=== PATIENT | female | born 1965 | race African-American/Black ===

== ENCOUNTER 2019-04-28 18:53 | Emergency (ER) | payer OTHER ==
[~2019-04-28] VITALS: Ht 170.2 cm; Wt 84.0 kg
--- NOTE | 2019-04-28 19:57 | PHYS DOC ---
Past Medical History Past Medical History: No Pertinent History Past Surgical History: No Surgical History Alcohol Use: None Adult General Chief Complaint Chief Complaint: MECHANICAL FALL HPI HPI 53-year-old female presents to the emergency department with complaints of fall, she complained of left knee pain. She states she hit her knee on the ice, she was unable to bear weight at that time. Since the pain is worsened which is why she presents to the ER. She is well describes cough, chest pain in center aspect of her chest for 3 weeks, she states it hurts to push on her chest. This is been constant. Patient denies any nausea, vomiting, abdominal pain, diarrhea, headache or visual change. Review of Systems Review of Systems Constitutional: Denies fever or chills [] Respiratory: Denies cough or shortness of breath [] Cardiovascular: No additional information not addressed in HPI [] GI: Denies abdominal pain, nausea, vomiting, bloody stools or diarrhea [] : Denies dysuria or hematuria [] Musculoskeletal: left knee pain Integument: Denies rash or skin lesions [] Neurologic: Denies headache, focal weakness or sensory changes [] All other systems were reviewed and found to be within normal limits, except as documented in this note. Current Medications Current Medications Current Medications Medications (Trade) Dose Ordered Sig/Letty Start Time Stop Time Status Last Admin Dose Admin Ketorolac Tromethamine (Toradol 15mg Vial) 30 mg 1X ONCE 04/28/19 20:00 04/28/19 20:01 DC 04/28/19 20:42 30 MG Allergies Allergies Allergies Coded Allergies Type Severity Reaction Last Updated Verified No Known Drug Allergies 04/28/19 No Physical Exam Physical Exam Constitutional: Well developed, well nourished, mild distress 2/2 pain, non- toxic appearance. [] HENT: Normocephalic, atraumatic, bilateral external ears normal, oropharynx moist, no oral exudates, nose normal. [] Eyes: PERRLA, EOMI, conjunctiva normal, no discharge. [] Cardiovascular:Heart rate regular rhythm, no murmur [] Lungs & Thorax: Bilateral breath sounds clear to auscultation [] Abdomen: Bowel sounds normal, soft, no tenderness, no masses, no pulsatile ma sses. [] Skin: Warm, dry, no erythema, no rash. [] Back: No tenderness, no CVA tenderness. [] Extremities: No tenderness, pain with ROM of left knee, some edema/swelling appreciated [] Neurologic: Alert and oriented X 3, no focal deficits noted. [] Psychologic: Affect normal, judgement normal, mood normal. [] Current Patient Data Vital Signs Vital Signs Date Time Temp Pulse Resp B/P (MAP) Pulse Ox O2 Delivery O2 Flow Rate FiO2 04/28/19 19:15 98.6 94 17 147/70 (95) 97 Room Air 98.6 Lab Values Laboratory Tests Test 04/28/19 20:36 White Blood Count 8.1 x10^3/uL (4.0-11.0) Red Blood Count 5.15 x10^6/uL (3.50-5.40) Hemoglobin 14.2 g/dL (12.0-15.5) Hematocrit 42.3 % (36.0-47.0) Mean Corpuscular Volume 82 fL (79-100) Mean Corpuscular Hemoglobin 28 pg (25-35) Mean Corpuscular Hemoglobin Concent 34 g/dL (31-37) Red Cell Distribution Width 15.0 % (11.5-14.5) H Platelet Count 341 x10^3/uL (140-400) Neutrophils (%) (Auto) 68 % (31-73) Lymphocytes (%) (Auto) 18 % (24-48) L Monocytes (%) (Auto) 10 % (0-9) H Eosinophils (%) (Auto) 4 % (0-3) H Basophils (%) (Auto) 1 % (0-3) Neutrophils # (Auto) 5.5 x10^3/uL (1.8-7.7) Lymphocytes # (Auto) 1.4 x10^3/uL (1.0-4.8) Monocytes # (Auto) 0.8 x10^3/uL (0.0-1.1) Eosinophils # (Auto) 0.3 x10^3/uL (0.0-0.7) Basophils # (Auto) 0.1 x10^3/uL (0.0-0.2) Sodium Level 141 mmol/L (136-145) Potassium Level 4.1 mmol/L (3.5-5.1) Chloride Level 104 mmol/L (98-107) Carbon Dioxide Level 29 mmol/L (21-32) Anion Gap 8 (6-14) Blood Urea Nitrogen 18 mg/dL (7-20) Creatinine 1.1 mg/dL (0.6-1.0) H Estimated GFR (Cockcroft-Gault) 62.4 BUN/Creatinine Ratio 16 (6-20) Glucose Level 106 mg/dL (70-99) H Calcium Level 9.2 mg/dL (8.5-10.1) Total Bilirubin 0.2 mg/dL (0.2-1.0) Aspartate Amino Transferase (AST) 21 U/L (15-37) Alanine Aminotransferase (ALT) 16 U/L (14-59) Alkaline Phosphatase 82 U/L (46-116) Troponin I Quantitative < 0.017 ng/mL (0.000-0.055) Total Protein 7.7 g/dL (6.4-8.2) Albumin 3.3 g/dL (3.4-5.0) L Albumin/Globulin Ratio 0.8 (1.0-1.7) L Laboratory Tests 04/28/19 20:36 Laboratory Tests 04/28/19 20:36 EKG EKG EKG reviewed, normal sinus rhythm, heart rate 96, interpretation time 1950, no evidence of ST elevation [place][] Radiology/Procedures Radiology/Procedures [facility] [address] [place] [address] IMAGING REPORT Signed PATIENT: PERCY MONTERROSO ACCOUNT: [id number] : 1965 LOCATION: ER AGE: 53 SEX: F EXAM STATUS: REG ER ORD. PHYSICIAN: VIGNESH CORTES MD REASON: fall, knee pain, unable to bear weight PROCEDURE: KNEE LEFT 3V Examination: KNEE LEFT 3V History: Fall, knee pain, unable to bear weight Comparison/Correlation: None Findings: Total 3 images of the left knee were obtained. Joint spaces are normal. No acute fracture or bone destruction. Small knee joint effusion is present. No significant degenerative change. Minimal spurring at the patella suggested. Soft tissues are unremarkable. Impression: Small knee joint effusion. Electronically signed by: Woodrow [place] MD (04/28/2019 8:32 PM) [place] [id number] DICTATED and SIGNED BY: WOODROW [place] MD DATE: 04/28/192031 [] [facility] [address] [place] [address] IMAGING REPORT Signed PATIENT: PERCY MONTERROSO ACCOUNT: [id number] : 1965 LOCATION: ER AGE: 53 SEX: F EXAM STATUS: REG ER ORD. PHYSICIAN: VIGNESH CORTES MD REASON: Chest Pain with cough PROCEDURE: PORTABLE CHEST 1V PORTABLE CHEST 1V History: Chest pain and cough Comparison: None. Findings: Patchy bibasilar opacities. No pneumothorax. No pleural effusion. Impression: 1. Patchy bibasilar opacities, may represent atelectasis or consolidations. Electronically signed by: Enoc Xiong DO (04/28/2019 8:33 PM) [facility] DICTATED and SIGNED BY: ENOC XIONG DO DATE: 04/28/192032 Course & Med Decision Making Course & Med Decision Making Pertinent Labs and Imaging studies reviewed. (See chart for details) []53-year-old female presents to the emergency department with complaints of fall, she complained of left knee pain. She states she hit her knee on the ice, she was unable to bear weight at that time. Since the pain is worsened which is why she presents to the ER. She is well describes cough, chest pain in center aspect of her chest for 3 weeks, she states it hurts to push on her chest. This is been constant. Patient denies any nausea, vomiting, abdominal pain, diarrhea, headache or visual change. Labs and imaging reviewed Chest x-ray with evidence of consolidation patchy, given symptoms would recommend treatment with antibiotic therapy. X-ray of left knee reveals evidence of small effusion. No fracture appreciated Given patient's findings would recommend abx therapry, knee immobilizer and follow-up as an outpatient with orthopedic surgery. Discussed imaging and lab findings with patient and family at bedside Return precautions discussed with family at bedside Dragon Disclaimer Dragon Disclaimer This electronic medical record was generated, in whole or in part, using a voice recognition dictation system. Departure Departure Impression: Primary Impression: Bronchitis Additional Impression: Effusion, left knee Disposition: HOME, SELF-CARE Condition: IMPROVED Referrals: UNKNOWN PCP NAME (PCP) BRYAN BEATTY II, MD Patient Instructions: Acute Bronchitis, [id number], Fall Prevention and Home Safety, [id number], Knee Effusion, [id number] Additional Instructions: Recommend follow up with PCP 3 - 5 days Return to the ER with worsening symptoms, intractable pain, fever, altered menta l status Tylenol/Motrin as needed for pain Take antibiotics as directed Pain medications provided Follow up with Ortho as outpatient as needed or PCP regarding effusion Scripts Tramadol Hcl (TRAMADOL HCL) 50 Mg Tablet 50 MG PO Q6HRS PRN for PAIN, #10 TAB Prov: VIGNESH CORTES MD 04/28/19 Doxycycline Hyclate (DOXYCYCLINE HYCLATE) 100 Mg Capsule 1 CAP PO BID, #14 CAP Prov: VIGNESH CORTES MD 04/28/19 Problem Qualifiers VIGNESH CORTES MD Apr 28, 2019 19:57
[2019-04-28] MEDS ORDERED: KETOROLAC 15 MG/ML VIAL. IVP ONE (20:00)
--- NOTE | 2019-04-28 20:35 | RAD ---
Examination: KNEE LEFT 3V History: Fall, knee pain, unable to bear weight Comparison/Correlation: None Findings: Total 3 images of the left knee were obtained. Joint spaces are normal. No acute fracture or bone destruction. Small knee joint effusion is present. No significant degenerative change. Minimal spurring at the patella suggested. Soft tissues are unremarkable. Impression: Small knee joint effusion. Electronically signed by: Woodrow Gracia MD (04/28/2019 8:32 PM) [facility]
--- NOTE | 2019-04-28 20:36 | RAD ---
PORTABLE CHEST 1V History: Chest pain and cough Comparison: None. Findings: Patchy bibasilar opacities. No pneumothorax. No pleural effusion. Impression: 1. Patchy bibasilar opacities, may represent atelectasis or consolidations. Electronically signed by: Enoc Xiong DO (04/28/2019 8:33 PM) [facility]
[2019-04-28 20:42] LABS: BASO # 0.1 x10^3/uL (0.0-0.2); BASO % 1 % (0-3); EOS # 0.3 x10^3/uL (0.0-0.7); EOS % 4 % (0-3); HEMATOCRIT 42.3 % (36.0-47.0); HEMOGLOBIN 14.2 g/dL (12.0-15.5); LYMPH # 1.4 x10^3/uL (1.0-4.8); LYMPH % 18 % (24-48); MEAN CORPUSCULAR HEMOGLOBIN 28 pg (25-35); MEAN CORPUSCULAR HGB CONC 34 g/dL (31-37); MEAN CORPUSCULAR VOLUME 82 fL (79-100); MONO # 0.8 x10^3/uL (0.0-1.1); MONO % 10 % (0-9); NEUT # 5.5 x10^3/uL (1.8-7.7); NEUT % 68 % (31-73); PLATELET COUNT 341 x10^3/uL (140-400); RED BLOOD COUNT 5.15 x10^6/uL (3.50-5.40); WHITE BLOOD COUNT 8.1 x10^3/uL (4.0-11.0)
[2019-04-28 20:50] LABS: CALCIUM 9.2 mg/dL (8.5-10.1); CREATININE 1.1 mg/dL (0.6-1.0); GFR 62.4; POTASSIUM 4.1 mmol/L (3.5-5.1)
[2019-04-28 20:56] LABS: ALBUMIN 3.3 g/dL (3.4-5.0); ALBUMIN/GLOBULIN RATIO 0.8 (1.0-1.7); TOTAL BILIRUBIN 0.2 mg/dL (0.2-1.0); TOTAL PROTEIN 7.7 g/dL (6.4-8.2)
[2019-04-28] MEDS ORDERED: TRAM50TA PO (21:33)
[2019-04-28] MEDS ORDERED: DOXY100C2 PO (21:33)
[2019-04-28 21:57] VITALS: BP 137/74
--- NOTE | 2019-04-29 06:46 | EKG ---
[facility] [address] [place] [address] Test Date: 2019-04-28 Test Time: 19:51:50 Pat Name: PERCY MONTERROSO Department: Room: Gender: F Staff Psychiatrist: : 1965 Requested By: VIGNESH CORTES Order Number: [id number] Reading MD: Measurements Intervals [place] Rate: 96 P: 42 WI: 124 QRS: 31 QRSD: 70 T: 48 QT: 330 QTc: 418 Interpretive Statements SINUS RHYTHM NORMAL ECG RI6.01 No previous ECG available for comparison
== END 2019-04-28 21:57 | disposition home or self-care (01) ==
LOC: ER 18:53
DX: G89.11 Acute pain due to trauma (principal); M25.462 Effusion, left knee; J40 Bronchitis, not specified as acute or chronic; R05 Cough; R07.89 Other chest pain; W19.XXXA Unspecified fall, initial encounter; Y93.89 Activity, other specified; Y92.89 Other specified places as the place of occurrence of the external cause; Y99.8 Other external cause status
CPT/HCPCS: 29505; 36415; 71045; 73562; 80053; 84484; 85025; 93005; 96374; 99285; J1885